=== PATIENT | female | born 2005 | race Two or more races ===

== ENCOUNTER 2024-12-22 14:52 | Outpatient (RCR) | payer MEDICAID, SELFPAY ==
--- NOTE | 2024-12-08 15:18 | XR_ITS ---
Examination: Biophysical profile, ultrasound Date and time of exam: December 08, 2024 1521 hours INDICATIONS: Diagnosis gestational diabetes Technique: Multiple transabdominal sonographic images of the pelvis abdomen obtained. Attention is directed to the breathing movement, gross body movement, amniotic fluid volume and tone. Findings: Amniotic fluid index 13.6 cm Total biophysical profile is 8 of 8. breathing movement is 2. Gross body movement is 2. tone is 2. Qualitative amniotic fluid volume is 2 Impression: Biophysical profile is 8 of 8.
[2024-12-08 16:26] VITALS: BP 119/65; PULSE 81; RESP 18; TEMP 36.3
--- NOTE | 2024-12-15 15:05 | XR_ITS ---
Examination: Biophysical profile, ultrasound Date and time of exam: December 15, 2024 1407 hours INDICATIONS: Diagnosis gestational diabetes Technique: Multiple transabdominal sonographic images of the pelvis abdomen obtained. Attention is directed to the breathing movement, gross body movement, amniotic fluid volume and tone. Findings: Amniotic fluid index 12.5 cm Total biophysical profile is 8 of 8. breathing movement is 2. Gross body movement is 2. tone is 2. Qualitative amniotic fluid volume is 2 Impression: Biophysical profile is 8 of 8.
[2024-12-15 15:35] VITALS: BP 112/57; PULSE 82; RESP 16; TEMP 36.7
--- NOTE | 2024-12-22 14:57 | XR_ITS ---
Examination: Biophysical profile, ultrasound Date and time of exam: December 22, 2024 1500 hours INDICATIONS: Diagnosis gestational diabetes Technique: Multiple transabdominal sonographic images of the pelvis abdomen obtained. Attention is directed to the breathing movement, gross body movement, amniotic fluid volume and tone. Findings: Amniotic fluid index 8.4 cm Total biophysical profile is 8 of 8. breathing movement is 2. Gross body movement is 2. tone is 2. Qualitative amniotic fluid volume is 2 Impression: Biophysical profile is 8 of 8.
[2024-12-22 15:30] VITALS: BP 122/69; PULSE 71; RESP 16; TEMP 36.7
== END 2024-12-22 23:59 | disposition home or self-care (01) ==
LOC: S4S1 14:52
PROVIDERS: PCP Family Medicine; Referring Provider Nurse Practitioner Women's Health; Visit Provider Nurse Practitioner Women's Health
DX: O24.415 Gestational diabetes mellitus in pregnancy, controlled by oral hypoglycemic drugs (principal); Z3A.36 36 weeks gestation of pregnancy
CPT/HCPCS: 59025; 76819

== ENCOUNTER 2024-12-27 14:00 | Inpatient (IN) | payer MEDICAID, SELFPAY ==
[2024-12-27] VITALS (93 sets, daily range): BP systolic 93–143; BP diastolic 49–78; PULSE 63–111; RESP 17–100; TEMP 36.7–36.8; O2SAT 91–100; BMI 32.8
[2024-12-27 14:49] LABS: ROM Kit Lot # 57807112; ROM Swab Mixed By: LOPEC2; Rupture of Fetal Membranes Positive (Negative); Swb Mxed in Solvent 1 min? Yes
--- NOTE | 2024-12-27 15:15 | ESHP_ITS ---
Documentation for date of: 12/27/24 OB Labor/Induct. HPI History of Present Illness Chief complaint: loss of fluid, contractions : 1 Para: 0 Term pregnancies: 0 pregnancies: 0 Living children: 0 History of Abortions: Spontaneous and Elective: 0 History of Vaginal deliveries: 0 History of sections: No History of : No Date of last menstrual period: 03/27/24 SHAYLA: 01/13/25 Gestational Age (weeks): 37 Gestational Age (days): 4 Gestational age based on last menstrual period: 39 History of present illness: Patient presents for loss of fluid, clear, that occurred at 0700 today. Having contractions that are not painful yet. No vaginal bleeding. Normal movement. No fevers/chills. History of Present Dating criteria: based on 1st trimester US only Adequate Care: Yes Narrative: PNC with [facility] A2GDM taking metformin 1000mg PO BID Starting HgbA1c 5.7, pre-diabetes Current BMI 32.8 Labs Maternal Blood Type: O Pos Labs: Positive: Rubella Titre, Negative: RPR, Hepatitis B, HIV, Chlamydia and Gonorrhea and Unknown: Herpes Type 1, Herpes Type 2, Group Beta Strep and Covid-19 Narrative: NIPT, CF and SMA screen negative 2hr glucose: 97/184/125 Review of Systems Review of Systems Narrative Review of Systems: Review of Systems Systems Reviewed: All systems reviewed, normal except as documented Constitutional Constitutional: Denies body ache(s), Denies chills, Denies fever(s) and Denies headache(s) ENT Ears, Nose, Mouth, and Throat: Denies headache(s) and Denies vertigo Cardiovascular Cardiovascular: Denies chest pain, Denies palpitations, Denies dyspnea and Denies syncope Respiratory Respiratory: Denies cough, Denies dyspnea Gastrointestinal Gastrointestinal: Denies nausea and Denies vomiting Neurologic Neurologic: Denies convulsions, Denies headache(s), Denies other visual disturbances, Denies syncope and Denies vertigo Past Medical History Family History OTHER FAMILY HX: non-contributory Surgical History SURGICAL: Negative Section OTHER SURGICAL HX: 2022 cholecystectomy Social History SOCIAL: No tobacco/ETOH/illicit drug use Past Medical History Comments PMH COMMENT: Starting HgbA1c 5.7, pre-diabetes Current BMI 32.8 Meds Home Medications and Allergies Home Medications ?Medication ?Instructions ?Recorded ?Confirmed ?Type metformin 1,000 mg 24 hr 1,000 mg PO BID 12/27/24 History tablet,extended release (gastric reten.) (Glumetza) Allergies Allergy/AdvReac Type Severity Reaction Status Date / Time No Known Allergies Allergy Verified 12/27/24 14:17 OB Exam Physical Exam Vital signs: Temp Pulse Resp BP Pulse Ox O2 Del Method 98.1 F 71 18 123/74 99 Room Air 12/27/24 14:40 12/27/24 14:40 12/27/24 14:40 12/27/24 14:40 12/27/24 15:12 12/27/24 14:10 Narrative: General: well developed, well nourished, no acute distress, conversant Cardiac: normal heart rate Lungs: breathing without distress Abdomen: soft, gravid, non-tender, no rebound or guarding Extremities: no pain with palpation of calves Detailed Labor and Delivery Exam Dilation (cm): 3 Effacement (%): 70 station: -2 Consistency: soft Presentation: Vertex Membranes: ruptured (+amnisure) Amniotic fluid: clear monitor accelerations: 15x15 monitor decelerations: None superintendent container terminal variability: Moderate (11-25) Contraction frequency (min): q3-5min OB Results Labs 12/27/24 15:20 OB Assessment & Plan Assessment and Plan (1) Active labor at term: Status: Acute Assessment and plan: Patient is a 19yo with SIUP at 37&4wk presenting in active labor with SROM that occurred this morning, clear, at 0700. Amnisure positive. Regular/painful contractions, SCE: 3/70/-2. Vitals wnl, benign exam. Reassuring assessment. PMhx/ complicated by: A2GDM taking metformin 1000mg PO BID Starting HgbA1c 5.7, pre-diabetes Current BMI 32.8 [facility] Plan: -Admit to L&D -Establish IV, routine labs -CEFM -Carb consistent diet to start then [id number] -Fingerstick glucose checks q4hr -Personal Support Worker/consent re: , possible augmentation of labor if needed -GBS status: negative -Anticipate -Safe to proceed (2) SROM (spontaneous rupture of membranes): Status: Acute (3) Gestational diabetes: Status: Acute (4) Pre-diabetes: Status: Acute (3) Gestational diabetes Qualifiers: Gestational diabetes mellitus control: oral hypoglycemic-controlled T rimester: third trimester Qualified Code(s): O24.415 - Gestational diabetes mellitus in , controlled by oral hypoglycemic drugs
[2024-12-27 16:38] LABS: Basophils # (Auto) 0.1 Thou/mm3 (0.0-0.2); Basophils % (Auto) 0 % (0-2.5); Eosinophils # (Auto) 0.1 Thou/mm3 (0.0-0.5); Eosinophils % (Auto) 1 % (0-10); Hematocrit 37.4 % (36.0-46.0); Hemoglobin 12.9 g/dL (12.0-16.0); Immature Granulocytes % (Auto) 1 % (0-0); Immature Granulocytes Auto 0.06 Thou/mm3 (0.00-0.00); Lymphocytes # (Auto) 1.8 Thou/mm3 (1.0-4.8); Lymphocytes % (Auto) 16 % (10-50); Mean Corpuscular HGB Conc 34.5 g/dl (31.0-37.0); Mean Corpuscular Hemoglobin 30.6 pg (25.0-35.0); Mean Corpuscular Volume 89 fL (80-100); Monocytes # (Auto) 0.9 Thou/mm3 (0.0-0.8); Monocytes % (Auto) 8 % (0-12); Neutrophils # (Auto) 8.3 Thou/mm3 (1.8-7.7); Neutrophils % (Auto) 74 % (37-80); Nucleated Red Blood Cell % 0 /100 WBC (0); Platelet Count 299 Thou/mm3 (140-440); RDW Standard Deviation 43.9 fL (36.4-46.3); Red Blood Count 4.21 Miln/mm3 (4.00-5.20); White Blood Count 11.2 Thou/mm3 (4.5-11.0)
[2024-12-27] MEDS: RINGERS LACTATED 1000 ML 1,000 ML 100 ML IV ×2 (16:55→18:48)
[2024-12-27 17:21] LABS: Syphilis Nonreactive (Nonreactive)
[2024-12-27] MEDS: OXYTOCIN in NS 20 units 20 UNIT/1,000 ML BAG 125 UNIT IV (19:38)
[2024-12-27] MEDS: BENZO/LANO/ALOE (Dermoplast) 60 GM CAN 1 SPRAY TOP (19:49)
[2024-12-27] MEDS: IBUPROFEN TAB 400 MG TABLET 800 MG PO (19:49)
--- NOTE | 2024-12-27 20:11 | OBDSUM_ITS ---
Data (Ceja) Data Hx Section: No : 1 Term: 0 : 0 Livin Abortions: Spontaneous & Theraputic: 0 Delivery Data (Ceja) Labor Data Initiation of labor: Augmentation Induction/Augmentation Agent: None ROM date: 12/27/24 ROM time: 07:00 Amniotic membrane rupture type: Spontaneous Amniotic fluid description: Clear Delivery Data Onset of labor date: 12/27/24 Onset of labor time: 17:45 Complete dilation date: 12/27/24 Complete dilation time: 18:30 [place] delivery date: 12/27/24 delivery time: 19:36 Placenta delivery date: 12/27/24 Placenta delivery time: 19:42 Stage 1 total time: Labor - Stage 1 Duration 45 minutes Delivered by: Sofia Meier Delivery nurse: eden gtz nurse: bibi vieira [employer] Manager at delivery: No Support person(s) at delivery: FOB Delivery Method Delivery method: Normal Vaginal Delivery Presentation: Vertex Anesthesia Type Anesthesia Type: Epidural Placenta Placenta delivery description: Spontaneous Cord blood sent to lab: Yes cord blood collection: Cord Blood Type Episiotomy Episiotomy description: None EBL Estimated blood loss (ml): 250 Umbilical Cord cord description: 3 Vessels Additional Procedures Janette is a 19yo s/p uncomplicated at 37&4wk after presenting in active labor/with SROM, delivering at 1936 on 12/27/2024. On presentation, SCE was 3/70/-2. She progressed without augmentation to C/C/+2 at which point she began pushing. She was able to receive an epidural. With good maternal pushing efforts, 's head delivered OA and restituted JACKELYN. Left anterior shoulder delivered easily followed by posterior shoulder and corpus. Infant had spontaneous cry and was vigorous. Apgars 9/9. placed on maternal abdomen where nose/mouth were suctioned and dried/stimulated. After approximately 1 minute, cord was clamped x2 and cut by FOB. Cord blood collected for typing. With fundal massage and cord traction, placenta delivered spontaneously and intact with 3 vessel centrally inserted cord. Bimanual massage performed and IV pitocin given per protocol with fundus then firm at u-2cm and hemostasis noted. Inspection of perineum and vagina revealed bilateral labial lacerations and a small 1st degree midline perineal laceration which were repaired in routine fashion with 4-0 vicryl- total reapproximation and hemostasis achieved. All counts correct x2. Mom and were doing well when I left the room. Sofia Meier MD Complications Complications: none [place] Data (Ceja) Data order: 1 [place]'s gender: Female Identification band number: [id number] weight (gms): 2680 g Weight (pounds): 5 lbs and 14.5 ozs length: 46 cm 1 minute: 9 5 minutes: 9
[2024-12-28 00:09] VITALS: BP 115/68; PULSE 76; RESP 16; TEMP 37; O2SAT 98
[2024-12-28 02:24] LABS: Basophils % (Auto) 0 % (0-2.5); Eosinophils # (Auto) 0.1 Thou/mm3 (0.0-0.5); Eosinophils % (Auto) 0 % (0-10); Hematocrit 32.2 % (36.0-46.0); Hemoglobin 11.2 g/dL (12.0-16.0); Immature Granulocytes % (Auto) 0 % (0-0); Immature Granulocytes Auto 0.07 Thou/mm3 (0.00-0.00); Lymphocytes # (Auto) 2.5 Thou/mm3 (1.0-4.8); Lymphocytes % (Auto) 15 % (10-50); Mean Corpuscular HGB Conc 34.8 g/dl (31.0-37.0); Mean Corpuscular Volume 89 fL (80-100); Monocytes # (Auto) 1.4 Thou/mm3 (0.0-0.8); Monocytes % (Auto) 8 % (0-12); Neutrophils # (Auto) 12.2 Thou/mm3 (1.8-7.7); Neutrophils % (Auto) 76 % (37-80); Nucleated Red Blood Cell % 0 /100 WBC (0); Platelet Count 253 Thou/mm3 (140-440); RDW Standard Deviation 43.8 fL (36.4-46.3); Red Blood Count 3.61 Miln/mm3 (4.00-5.20); White Blood Count 16.2 Thou/mm3 (4.5-11.0)
[2024-12-28 03:55] VITALS: BP 106/66; PULSE 80; RESP 16; TEMP 36.7; O2SAT 98
[2024-12-28 07:55] VITALS: BP 106/65; PULSE 86; RESP 18; TEMP 36.7; O2SAT 98
--- NOTE | 2024-12-28 08:00 | ESDS_ITS ---
DS: Providers Provider Date of admission: 12/27/24 14:55 Primary care physician: Physician No Primary/Family Admitting Provider: Sofia Meier MD Attending Provider on Admission: Sofia Meier MD Consults: 12/27/24 20:09 Referral Routine Comment: Attending Provider on DC: Karis Alfonso CNM Discharging Provider: Karis Alfonso CNM Anticipated date of discharge: 12/28/24 DS: Diagnosis Discharge Diagnosis (1) Normal labor and delivery: Status: Acute (2) Encounter for care of lactating mother: Status: Acute Problem List Completed Was Problem List Reviewed/Reconciled?: Yes Summary/Hosp Course Brief History: Patient presents for loss of fluid, clear, that occurred at 0700 today. Having contractions that are not painful yet. No vaginal bleeding. Normal movement. No fevers/chills. 12/28/24: PPD#1 pt is doing well in , denies dizziness, SOB and ios breast feeding and bonding well. Uterus is non-tender, fundus firm and mninimal lochai. No complaints. Discharge instructions given. FU with Karis Alfonso CNM in 3 weeks . Peripartum Data Delivery Method: Normal Vaginal Delivery Episiotomy Description: None Laceration Description: yes and see Delivery Summary complications: none 1: Gender: Female Disposition of : home Status at Discharge Cognitive/behavioral status at discharge: Alert and oriented x3 Functional status at discharge: independent ambulation Overall status at discharge: patient is progressing back to baseline Time Spent with Patient Time attestation: Total time spent providing and/or coordinating discharge services: Exam Vital Signs Temp Pulse Resp BP Pulse Ox O2 Del Method 98.1 F 80 16 106/66 98 Room Air 12/28/24 03:55 12/28/24 03:55 12/28/24 03:55 12/28/24 03:55 12/28/24 03:55 12/28/24 03:55 Constitutional Constitutional: no acute distress Routine HEENT Exam Head: Present normocephalic and atraumatic Eye: Present EOMI, PERRL and normal accommodation ENT: Present mucous membranes moist Routine Neck Exam Neck: Present supple, full ROM and trachea midline Routine Respiratory Exam Respiratory: Present chest non-tender, lungs clear, normal breath sounds and no resp distress Routine Cardiovascular Exam Cardiovascular: Present RRR Routine Abdominal Exam Abdominal: Present soft and normoactive bowel sounds; Absent tenderness or distended Comments: Uterus non-tender Fundus firm Routine Exam Patient deferred: external exam Routine Extremities Exam Extremities: Present full ROM, pulses intact and normal capillary refill; Absent calf tenderness or tenderness Routine Back/Spine/Pelvis Exam Back/Spine: Present full ROM Routine Skin Exam Skin: Present intact, dry and warm Routine Neurological Exam Neurological: Present alert, oriented X3 and CN II-XII intact Routine Psychiatric Exam Psychiatric: Present normal affect and normal thought process Discharge Plan Plan Patient Disposition: HOME (Self Care) Patient condition on transfer: Stable Prescriptions/Referrals Prescriptions/Med Rec: New ibuprofen 800 mg tablet 800 mg PO Q6H MDD 4 PRN (Reason: pain) Qty: 90 0RF docusate sodium [Colace] 100 mg capsule 100 mg PO BID Qty: 60 0RF lanolin 50 % ointment 1 applic topical TID PRN (Reason: skin irritation) Qty: 15 0RF Discontinued metformin [Glumetza] 1,000 mg tablet,ER sania.retention 24 hr 1,000 mg PO BID Referrals: No Primary/Family,Physician [Primary Care Provider] - Patient/Caregiver Discharge Instructions Meds to Beds: No Discharge Activity: activity as tolerated Other Discharge Activity Instructions:: Follow-up with Karis Alfonso CNM in 3 weeks Print Language: Georgian Stand Alone Forms: Manda Award Info., Patient Portal Info Letter Discharge Order Discharge Orders: Discharge (Routine); Ordered 12/28/24 Ordered By: Karis Alfonso Planned Discharge Date 12/28/24
[2024-12-28] MEDS: DOCUSATE SOD 100 MG CAPSULE PO ×2 (08:07→20:50)
[2024-12-28 11:10] VITALS: BP 106/71; PULSE 86; RESP 16; TEMP 36.7; O2SAT 97
[2024-12-28 15:00] VITALS: BP 104/68; PULSE 79; RESP 18; TEMP 36.8; O2SAT 97
[2024-12-28 21:30] VITALS: BP 102/64; PULSE 87; RESP 19; TEMP 36.5; O2SAT 95
== END 2024-12-28 21:35 | disposition home or self-care (01) | DRG 560 ==
LOC: S4SX 20:39 → S4NX 21:59
PROVIDERS: Admitting Provider Obstetrics & Gynecology; Visit Provider Obstetrics & Gynecology
DX: O24.425 Gestational diabetes mellitus in childbirth, controlled by oral hypoglycemic drugs (principal); O70.0 First degree perineal laceration during delivery; Z37.0 Single live birth; Z3A.37 37 weeks gestation of pregnancy
CPT/HCPCS: 36415; 59025; 59409; 84112; 85025; 86780; 86850; 86900; 86901; 94762; J2590; J2795; J3010; J7120; A9270

== ENCOUNTER 2025-08-09 11:00 | Outpatient (AMB) | payer MEDICAID, SELFPAY ==
[2025-08-09 11:12] VITALS: BP 107/73; PULSE 88; RESP 18; TEMP 36.6; O2SAT 98; BMI 31.2
--- NOTE | 2025-08-09 11:12 | OBCLNT_ITS ---
Vital Signs 08/09/25 11:12 Height 1.63 m Height Method Measured Weight 82.611 kg Weight Measurement Method Standing Scale BMI 31.2 BP 107/73 Blood Pressure Source Automatic Cuff Blood Pressure Location Left Upper Arm Position Sitting Respiration 18 Pulse 88 Pulse Source Monitor Temp 98 F Temp Source Oral Pulse Oximetry (%) 98 Oxygen Delivery Method Room Air Allergies/Home Meds Allergies & Medications Allergies No Known Allergies Allergy (Verified 08/09/25 11:18) Medication Reconciliation vitamins-iron fumarate 66 mg iron-folic acid 1 mg tablet tab PO 08/09/25 [History Confirmed 08/09/25] vits no.126-ferrous fum 28 mg iron-folic acid 800 mcg tablet (Classic ) 1 tab PO DAILY 90 days #90 tabs 08/09/25 [Rx] Intake Visit Data Collection New Patient or Established: Established Patient (seen at [facility] within 3 years) Reason for Visit:: INITIAL CARE Seen by Clinical Staff ONLY (RN/MA): No Lead Qa Analyst Required: No Do You Feel Safe at Home: Yes Authorities Contacted: N/A PCP or OBGYN visit in last 3 months: Yes Hx Now: Yes Are you currently on any form of Control: No Last menstrual period: 04/15/25 Pain Present Currently: No Pain Scale Used: [place]-Leroy/Numerical Pain scale:: 0 Smoking Status Smoking Status: Never smoker Immunizations Flu Vaccine in the Last 12 Months: No Flu Vaccine Exclusion Criteria: Refused by Patient Questionnaires Covid-19 Vaccine Questionnaire Has patient been vacinated for Covid-19 Have you been vacinated for Covid-19: Yes PHQ-9 PHQ-2 Over the last 2 weeks, how often have you been bothered by any of the following problems? 1. Little interest or pleasure in doing things: not at all 2. Feeling down, depressed, or hopeless: not at all Total score: 0 PHQ-9 3. Trouble falling or staying asleep, or sleeping too much: Not at all 4. Feeling tired or having little energy: Not at all 5. Poor appetite or overeating: Not at all 6. Feeling bad about yourself - or that you are a failure or have let yourself or your family down: Not at all 7. Trouble concentrating on things, such as reading the newspaper or watching television: Not at all 8. Moving or speaking so slowly that other people could have noticed? - Or the opposite - being so fidgety or restless that you have been moving around a lot more than usual: not at all 9. Thoughts that you would be better off or of hurting yourself in some way: Not at all Total score: 0 Source: Developed by Drs. Marcos Pennington, Amira Li, Marco Antonio Zhou and colleagues, with an educational ansley from [employer]. Depression screen completed yes Social History Living Situation History Lives With: Family Housing: House Tobacco History Smoking Status: Never smoker Second Hand Smoke Exposure: No Alcohol History Alcohol Intake: Never Domestic Abuse History Do You Feel Safe at Home: Yes History of Present Illness HPI Narrative ?20 Years old G?2P?1at gestational age??based on last menstrual period of dated?early april but not certain . No complaints so far Here for first visit LPS between 2021 and 2024 LMP? 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: Past Medical History Past Medical History: No Hx Neurological Disorders, No Hx Breast Cancer, No Hx Cardiac Disorders, No Hx Cancer, No Hx Gastrointestinal Disorders, No Hx Renal D isease, No Hx Diabetes Mellitus Type 1 and No Hx Diabetes Mellitus Type 2 OB Initial Visit OB Flowsheet OB Flowsheet Initial Weight: Not Recorded Date -?-?-?-?-?-?-?-?-?-?-?-?- EGA Weight BP Alb Glu CTX Pres Fundal ht FHR Mov Dilation Station Effacement Hx Notes Visit Note 08/09/25 -?-?-?-?-?-?-?-?-?-?-?-?- 19w 2d 82.611 kg 107/73 transverse 20 151 active Menstrual History Menstrual reliability: approximate (month known) Flow: normal Menstrual regularity: regular Monthly: Yes Age at menarche: 11 On control pills at conception: No Associated symptoms (LMP): Denies amenorrhea, nausea, vomiting, fatigue, breast tenderness, urinary frequency, irritability, bloating or other OB History : 2 Para: 1 # of Living Children: 1 Delivery History 1st : Child's name: LORENZA date: 12/27/24 sex: female Gestational age at delivery (weeks): 38 Delivery type: vaginal Delivery complications: NONE History of depression before or after : No Infection History & Risk Evaluation History of STDs: none Genetic Screening & History Genetic Screening/Teratology Counseling - Includes patient, baby's father, or anyone in either family with: 1. Patient's age 35 years or older as of estimated date of delivery: No 2. Thalassemia (Sami, Bengali, Mediterranean, or Background); MCV less than 80: No 3. Neural Tube Defect (Meningomyelocele, Spina Bifida, or Anencephaly): No 4. Congenital Heart Defect: No 5. Down Syndrome: No 6. Keith-Sachs (Ashkenazi Denominational, Cajun, Maori Citizen Of [place]): No 7. Leanne Disease (Ashkenazi Denominational): No 8. Familial Dysautonomia (Ashkenazi Denominational): No 9. Sickle Cell Disease or Trait (): No 10. Hemophilia or other blood disorders: No 11. Muscular Dystrophy: No 12. Cystic Fibrosis: No 13. Brit's Chorea: No 14. Mental Retardation/Autism: No 15. Other inherited genetic or chromosomal disorder: No 16. Maternal Metabolic Disorder (EG,TYPE 1 Diabetes, PKU): No 17. Patient or baby's father had a child with defects not listed above: No 18. Recurrent loss or a stillbirth: No 19. Medications (including supplements, vitamins, herbs or otc drugs)/illicit/recreational drugs/alcohol since last menstrual period: No 20. Any other: No Infection History 1. Live with someone with TB or exposed to TB: No 2. Rash or viral illness since last menstrual period: No 3. Hepatitis B,C: No Other (see comments) Source: [employer] Review of Systems Review of Systems Systems Reviewed: All systems reviewed, normal except as documented Constitutional Constitutional: Denies fatigue Gastrointestinal Gastrointestinal: Denies bloating, Denies nausea and Denies vomiting Genitourinary Genitourinary: Denies amenorrhea and Denies urinary frequency Psychiatric Psychiatric: Denies irritability Endocrine Endocrine: Denies fatigue Exam Narrative Physical exam: Alert and oriented x 3 no shortness of breath Pain no chest pain no palpitations Chest clear bilaterally no additional sounds, no wheezing no rales CVS regular rate and rhythm No CVAT Abdomen nontender, normal bowel sounds No guarding no rigidity No hernias Office Procedures [facility] LOC & Office Proc's Nursing/Assessment Patient Status: Established Patient OB Clinic Nursing Assessment: Medication Reconciliation, Update PMH in EMR and Vital Signs OB Clinic Coordination of Care: Complex Care and Chronic Disease 1-5, Consent,records obtained, informed consent, Education Simp Pt/Fam, 1 Ins Authori zation, Lab and Imaging orders, Results/Orders obtained and Staff clarify orders Special Needs: Heart tones Established Patient Charge Established Patient Point Assignment: 150 Established Patient Point Charge: EP Level 4 (120-155) Assessment & Plan Diagnosis / Problem List (1) : Status: Acute Qualifiers: Weeks of gestation: 19 weeks Qualified Code(s): Z3A.19 - 19 weeks gestation of Assessment and Plan: late care / first visit today / dating by today's bedside US c/w 19.2 weeks (2) Late care: Status: Acute Additional Plan 20 years old at ? dates / bedside US c/w 19.2 weeks / Plan MSAFP/NIPT and also first trimester labs .order pills / refused flu vaccine and follow up in 4 weeks Follow Up: 4 Weeks
== END 2025-08-09 11:47 | disposition home or self-care (01) ==
LOC: HODSOBC 11:00
PROVIDERS: Supervising Provider Obstetrics & Gynecology; Visit Provider Obstetrics & Gynecology
DX: O09.32 Supervision of pregnancy with insufficient antenatal care, second trimester (principal); Z3A.19 19 weeks gestation of pregnancy; Z28.21 Immunization not carried out because of patient refusal
CPT/HCPCS: 99214; G0463